=== PATIENT | female | born 1995 | race African-American/Black ===

== ENCOUNTER 2020-06-08 19:16 | Emergency (ER) | payer BC ==
[2020-06-08] MEDS ORDERED: Lidocaine Viscous Sol 2% 15 ml UD Cup ONE (19:57)
[2020-06-08] MEDS ORDERED: Ibuprofen 200 MG TAB ONE (19:57)
== END 2020-06-08 21:07 | disposition home or self-care (01) ==
LOC: ERS 19:16
DX: J02.0 Streptococcal pharyngitis (principal); J45.909 Unspecified asthma, uncomplicated
CPT/HCPCS: 87430; 87804; 99283

== ENCOUNTER 2020-06-10 21:09 | Emergency (ER) | payer BC ==
[2020-06-10] MEDS ORDERED: Metoclopramide HCl 10 MG TAB ONE (22:26)
[2020-06-10] MEDS ORDERED: diphenhydrAMINE 25 MG CAP ONE (22:26)
[2020-06-10] MEDS ORDERED: Bicillin LA 1.2 MILLION UNITS/2 ML SYRINGE ONE (22:26)
== END 2020-06-10 23:07 | disposition home or self-care (01) ==
LOC: ERS 21:09
DX: J02.0 Streptococcal pharyngitis (principal); J45.909 Unspecified asthma, uncomplicated
CPT/HCPCS: 96372; 99283; J0561; Q0163

== ENCOUNTER 2020-06-24 20:30 | Emergency (ER) | payer BC | END 2020-06-24 21:01 | disposition home or self-care (01) | LOC: ERS 20:30 | DX: J02.0 Streptococcal pharyngitis (principal); J45.909 Unspecified asthma, uncomplicated | CPT/HCPCS: 99282 ==

== ENCOUNTER 2021-01-26 17:52 | Emergency (ER) | payer BC ==
[2021-01-26 18:21] LABS: Bilirubin Negative (Negative); Blood, Urine Negative (Negative); Clarity Clear (Clear); Glucose, Urine (Dipstick) Normal (Negative); Ketone, Urine Negative (Negative); Leukocyte Negative Leu/uL (Negative); Nitrite Negative (Negative); Protein, Urine (Dipstick) 10 mg/dL (Neg-Trace); Specific Gravity, Urine 1.027 (1.002-1.036); Urobilinogen Normal mg/dL (Less than 2); pH, Urine 6.5 (5.0-9.0)
[2021-01-26 18:25] LABS: Pregnancy Test - Urine (BHCG) Negative (Negative); Pregu Control Background? CLEAR/WHITE (CLR/WHITE); Pregu Control Bar Appear? YES (CONTROL BAR); Specific Gravity 1.027 (1.002-1.036)
[2021-01-26 18:33] LABS: #Eosinphils 0.3 thou/uL (0.0-0.7); #Lymphocytes 2.9 thou/uL (1.20-3.40); #Monocytes 0.4 thou/uL (0.11-0.59); #Neutrophils 2.9 thou/uL (1.40-6.50); %Basophils 0.5 % (0.0-1.0); %Lymphocytes 43.7 % (21.0-51.0); %Monocytes 6.2 % (0.0-10.0); %Neutrophils 44.6 % (42.0-75.0); Hemoglobin 11.6 g/dL (12.0-16.0); Mean Corpuscular HGB CONC 33.7 g/dL (32.0-36.0); Mean Corpuscular Hemoglobin 26.8 pg (27.0-31.0); Mean Corpuscular Volume 79.5 fL (78.0-98.0); Platelet Count 273 thou/uL (130-400); Red Blood Cell (RBC) Count 4.32 mill/uL (4.20-5.40); White Blood Cell (WBC) Count 6.5 thou/uL (4.8-10.8)
[2021-01-26 18:52] LABS: Anion Gap 13 mmol/L (10-20); BUN (Urea Nitrogen) 6 mg/dL (7.0-18.7); Calc. Creatinine Clearance 0 mL/min (70-130); Calcium 9.1 mg/dL (7.8-10.44); Carbon Dioxide 22 mmol/L (22-29); Chloride 106 mmol/L (98-107); Glucose 87 mg/dL (70-105); Sodium 137 mmol/L (136-145)
== END 2021-01-26 19:28 | disposition home or self-care (01) ==
LOC: ERS 17:52
DX: N93.9 Abnormal uterine and vaginal bleeding, unspecified (principal); J45.909 Unspecified asthma, uncomplicated
CPT/HCPCS: 36415; 80048; 81003; 81025; 85025; 99284